=== PATIENT | female | born 1980 | race Caucasian/White ===

== ENCOUNTER 2016-09-21 18:53 | Emergency (ER) | payer SELFPAY ==
[~2016-09-21] VITALS: Ht 162.6 cm; Wt 50.0 kg
[2016-09-21] MEDS ORDERED: ULTRACET1 TABLET PO (20:18)
[2016-09-21] MEDS ORDERED: MOTRIN800 MG PO (20:18)
[2016-09-21] MEDS ORDERED: KEFLEX500 MG PO (20:18)
[2016-09-21 20:59] VITALS: BP 139/63
== END 2016-09-21 21:13 | disposition home or self-care (01) ==
LOC: EME 18:53
PROC: 0H9RXZZ Drainage of Toe Nail, External Approach (ICD-10-PCS; principal; 2016-09-21)
DX: S92.405B Nondisplaced unspecified fracture of left great toe, initial encounter for open fracture (principal); S90.212A Contusion of left great toe with damage to nail, initial encounter; W20.8XXA Other cause of strike by thrown, projected or falling object, initial encounter; Y93.89 Activity, other specified; Z72.0 Tobacco use
CPT/HCPCS: 73630; 99281; 99284; S0020

== ENCOUNTER 2017-10-23 22:24 | Emergency (ER) | payer OTHER ==
[~2017-10-23] VITALS: Ht 162.6 cm; Wt 53.5 kg
[~2017-10-23 22:24] MED LIST: KEFLEX500 MG PO; MOTRIN800 MG PO; ULTRACET1 TABLET PO
[2017-10-23] MEDS ORDERED: MOTRIN600 MG PO (23:56)
[2017-10-24 00:23] VITALS: BP 107/61
== END 2017-10-24 00:24 | disposition home or self-care (01) ==
LOC: EME 22:24
DX: S93.602A Unspecified sprain of left foot, initial encounter (principal); W10.1XXA Fall (on)(from) sidewalk curb, initial encounter; X50.0XXA Overexertion from strenuous movement or load, initial encounter; F17.200 Nicotine dependence, unspecified, uncomplicated
CPT/HCPCS: 73610; 73630; 99281; 99284